=== PATIENT | female | born 2000 | race Caucasian/White ===

== ENCOUNTER 2024-07-19 13:29 | Outpatient (CLI) | payer BC ==
[2024-07-19 14:15] LABS: BASOPHILS % (AUTO) 0.3 % (0-1); EOSINOPHILS # (AUTO) 0.2 X10'3 (0-0.9); EOSINOPHILS % (AUTO) 1.7 % (0-6); HEMATOCRIT 40.8 % (35.0-45.0); LYMPHOCYTES # (AUTO) 2.7 X10'3 (1.1-4.8); LYMPHOCYTES % (AUTO) 31.2 % (21-51); MEAN CORPUSCULAR HEMOGLOBIN 30.9 PG (27.0-31.0); MEAN CORPUSCULAR HGB CONC 34.2 g/dL (33.0-36.5); MEAN CORPUSCULAR VOLUME 90.3 FL (78-98); MEAN PLATELET VOLUME 7.4 FL (7.4-10.4); MONOCYTES # (AUTO) 0.6 X10'3 (0-0.9); MONOCYTES % (AUTO) 6.6 % (2-12); NEUTROPHILS # (AUTO) 5.3 X10'3 (1.8-7.7); NEUTROPHILS % (AUTO) 60.2 % (42-75); PLATELET COUNT 500 X10'3 (140-440); RED BLOOD COUNT 4.52 X10'6 (4.20-5.60); RED CELL DISTRIBUTION WIDTH 13.7 % (11.5-14.5); WHITE BLOOD COUNT 8.8 X10'3 (4.5-11.0)
[2024-07-19 14:49] LABS: ALANINE AMINOTRANSFERASE 14 U/L (12-78); ALBUMIN 3.9 G/DL (3.4-5.0); ALKALINE PHOSPHATASE 91 IU/L (46-116); ANION GAP 9 (8-16); ASPARTATE AMINO TRANSFERASE 9 U/L (10-37); BILIRUBIN,TOTAL 0.4 MG/DL (0.1-1.0); BLOOD UREA NITROGEN 9 MG/DL (7-18); BUN/CREATININE RATIO 12.2 (10.0-20.0); CALCIUM 9.4 MG/DL (8.5-10.1); CHLORIDE 103 MMOL/L (99-107); CHOL/HDL RATIO 3.8 (0.00-4.99); CHOLESTEROL 175 MG/DL (0-200); CREATININE 0.74 MG/DL (0.40-0.90); FREE T4 (FREE THYROXINE) 1.01 NG/DL (0.73-1.40); GLUCOSE 87 MG/DL (70-104); HDL CHOLESTEROL 46 MG/DL (35-60); LDL CHOLESTEROL 107 MG/DL (50-100); POTASSIUM 4.1 MMOL/L (3.5-5.1); SODIUM 141 MMOL/L (135-145); THYROID STIMULATING HORMONE 1.55 ulU/ml (0.34-4.50); TOTAL CARBON DIOXIDE 29.2 MMOL/L (24-32); TOTAL PROTEIN 7.9 G/DL (6.4-8.2); TRIGLYCERIDES 121 MG/DL (20-135); eGFR > 90 ML/MIN
== END 2024-07-19 23:59 | disposition home or self-care (01) ==
LOC: RAD 13:29
PROVIDERS: ATTEND Nurse Practitioner Family
DX: Z13.220 Encounter for screening for lipoid disorders (principal); Z13.1 Encounter for screening for diabetes mellitus; Z13.0 Encounter for screening for diseases of the blood and blood-forming organs and certain disorders involving the immune mechanism; R06.02 Shortness of breath; Z83.49 Family history of other endocrine, nutritional and metabolic diseases; Z76.89 Persons encountering health services in other specified circumstances
CPT/HCPCS: 36415; 80053; 80061; 84439; 84443; 85025

== ENCOUNTER 2025-02-14 15:20 | Outpatient (CLI) | payer BC ==
[2025-02-14 15:48] LABS: MEAN PLATELET VOLUME 7.2 FL (7.4-10.4); RED CELL DISTRIBUTION WIDTH 13.9 % (11.5-14.5)
[2025-02-14 16:03] LABS: CREATININE 0.64 MG/DL (0.40-0.90); TOTAL CARBON DIOXIDE 29.2 MMOL/L (24-32); eGFR > 90 ML/MIN
[2025-02-14 16:23] LABS: HCG SERUM QL NEGATIVE
== END 2025-02-14 23:59 | disposition home or self-care (01) ==
LOC: RAD 15:20
PROVIDERS: ATTEND Nurse Practitioner Family
DX: N91.1 Secondary amenorrhea (principal); R14.0 Abdominal distension (gaseous); N92.6 Irregular menstruation, unspecified; R53.83 Other fatigue
CPT/HCPCS: 36415; 80053; 82670; 82679; 83001; 83002; 84144; 84703; 85025

== ENCOUNTER 2025-02-27 08:21 | Outpatient (CLI) | payer BC ==
--- NOTE | 2025-02-27 09:42 | RADIOLOGY REPORT ---
INDICATION: SECONDARY AMENORRHEA TECHNIQUE: Multiple real-time grayscale transabdominal and TVsonographic images along with color and duplex Doppler of the uterus and ovaries were obtained. COMPARISON: None FINDINGS: The uterus measures 5 x 3 x 4 cm. The endometrial stripe measures 0.6cm. The right ovary measures 4 x 2 x 3 cm. The left ovary measures 3 x 3x 2 cm. Subsequent color and duplex Doppler interrogation of the ovaries demonstrated symmetric vascular flow to both ovaries, though this does not exclude the possibility of torsion due to the dual blood suppl y. IMPRESSION: 1. Grossly unremarkable pelvic ultrasound.
== END 2025-02-27 23:59 | disposition home or self-care (01) ==
LOC: RAD 08:21
PROVIDERS: ATTEND Nurse Practitioner Family
DX: N91.1 Secondary amenorrhea (principal)
CPT/HCPCS: 76856; 93976

== ENCOUNTER 2025-05-27 20:44 | Emergency (ER) | payer BC ==
[~2025-05-27] VITALS: Ht 157.5 cm; Wt 70.3 kg
--- NOTE | 2025-05-27 21:04 | Physician Documentation ---
History of Present Illness ~ Chief Complaint: Mental Health Eval Stated Complaint: Time Seen by MD: 20:56 HPI This is a very pleasant 24-year-old female who presents with a significant other for evaluation of suicidal ideation. She has been experiencing depression, progressively worsening since August this year. Eventually, has been up and decided to come in for help. No somatic complaints. She did have two alcoholic beverages a proximally 2 hours prior to arrival. Medication Reconciliation Allergies: Uncoded Allergies: ANTIBIOTIC (UNSURE NAME) (Allergy, Intermediate, VOMITING, 05/27/25) Miscellaneous Medications Home Med List (No Home Medications), (Reported) Review of Systems ROS 10 point review of systems was performed and unless noted above in HPI is negative for acute process/complaint. Physical Exam Vital Signs: Temperature: 98.2, Source: Temporal, Heart Rate: 84, Respiratory Rate: 18, BP: 116/80, Pulse Oximetry: 100, Weight: 70.300 Oxygen Flow Rate: 0 Physical Exam Physical examination: GENERAL: Awake, alert, oriented, GCS 15, no apparent distress, non-toxic a ppearing, answers questions, follows commands appropriately. Examined in triage, accompanied by significant other HEENT: Atraumatic, normocephalic, pupils equal, extraocular muscles intact Active gross movements, sclerae anicteric, mucus membranes moist, no stridor. NECK: Midline, no JVD CARDIOVASCULAR: Good skin perfusion without evidence of pallor, mottling. PULMONARY: Nonlabored, symmetric chest rise, no audible wheezing, no accessory muscle use, no respiratory distress, speaking in full sentences. GASTROINTESTINAL: Not distended. NEUROLOGIC: Lucid with normal mental status. Normal facial symmetry. Moves all extremities symmetrically and with purpose. No truncal ataxia. Speech is fluid without evidence of dysarthria or aphasia, no focal deficits appreciated. EXTREMITIES: Acute deformities Skin: warm, dry PSYCHIATRIC: Tearful affect, normal insight, normal concentration. Focused exam: [Does not respond to internal stimuli] Progress Results/Orders Results/Orders Orders - KIRILL CARRENO DO Med Rec (05/27/25 21:00) 1799.11 (05/27/25 21:00) Close Observation Level (05/27/25 21:00) Substance Use Navigator (05/27/25 21:00) Ondansetron Disint. Tablet (Zofran Odt T (05/27/25 22:15) Lorazepam Tablet (Ativan Tablet) (05/27/25 22:15) Vital Signs 05/27/25 05/27/25 20:47 21:27 Temp 98.2 Pulse 84 Resp 18 16 B/P (MAP) 116/80 Pulse Ox 100 O2 Flow Rate 0 Laboratory Tests Test 05/27/25 21:17 05/27/25 21:33 White Blood Count 10.0 Red Blood Count 4.82 Hemoglobin 14.7 Hematocrit 42.3 Mean Corpuscular Volume 87.9 Mean Corpuscular Hemoglobin 30.5 Mean Corpuscular Hemoglobin Concent 34.7 Red Cell Distribution Width 14.6 H Platelet Count 470 H Mean Platelet Volume 7.6 Neutrophils (%) (Auto) 63.3 Lymphocytes (%) (Auto) 27.6 Monocytes (%) (Auto) 7.8 Eosinophils (%) (Auto) 0.8 Basophils (%) (Auto) 0.5 Neutrophils # (Auto) 6.3 Lymphocytes # (Auto) 2.7 Monocytes # (Auto) 0.8 Eosinophils # (Auto) 0.1 Basophils # (Auto) 0.1 CBC Comment Sodium Level 141 Potassium Level 3.1 L Chloride Level 103 Carbon Dioxide Level 23.6 L Anion Gap 14 Blood Urea Nitrogen 10 Creatinine 0.77 Estimated GFR/1.73 m2 > 90 BUN/Creatinine Ratio 13.0 Glucose Level 102 Calcium Level 9.1 Albumin 4.4 Thyroid Stimulating Hormone (TSH) 1.64 Chemistry Comments Ethyl Alcohol Level 34 H Urine Specimen Description Cln catch midstream Urine Color Yellow Urine Clarity Clear Urine pH 6.0 Urine Specific [place] <=1.005 Urine Protein Negative Urine Glucose (UA) Negative Urine Ketones Negative Urine Occult Blood Negative Urine Nitrite Negative Urine Bilirubin Negative Urine Urobilinogen 0.2 Urine Leukocyte Esterase Negative Volume Urine Centrifuged 10 ml Urine HCG, Qualitative Negative Urine Comment Urine Opiates Screen Negative Urine Methadone Screen Negative Urine Fentanyl Screen Negative Urine Barbiturates Screen Negative Urine Phencyclidine Screen Negative Urine Amphetamines Screen Negative Urine Benzodiazepines Screen Negative Urine Cocaine Screen Negative Urine Cannabinoids Screen Positive Drug Screen Comment SARS-CoV-2 Antigen (Rapid) Negative Medical Decision Making Additional information obtaine: family Findings Facility Status: ED Holds, [facility] process The plan was discussed with the patient, who demonstrates clear understanding of the plan and is in agreement with the plan unless otherwise noted in the chart. All questions have been answered, all concerns were addressed unless otherwise documented. I was available throughout their ED stay for frequent reassessment and questions. Differential Diagnoses (considered and possible or likely): [Depression, stress, suicidal ideation, unlikely suicidal attempt, alcohol intoxication, alcohol withdrawal, less likely drug toxidrome, less likely thyrotoxicosis] ??Differential Diagnoses (considered and unlikely, not requiring evaluation currently): [No somatic complaints] MDM Data Please see HPI for the following: Independent Historians and external Records Review. Historian: [Patient] Independent Historians: ?[Significant other, record review] Medication Management: [Reviewed medication list] Social History and determinants: [Reviewed] Please see the body of the note for the following: Any independent interpretations of ECG, imaging studies. All vitals signs/haemodynamics, ordered tests were independently reviewed and interpreted by myself. Nursing triage complaint and vitals reviewed, additional nursing notes were reviewed as available and I agree unless otherwise noted or documented in co ntradiction in the chart Vital Signs: Independently reviewed Labs: Independently interpreted Imaging: Independently interpreted Old Medical Records: Independently reviewed, see [facility] for relevant summary and information Pulse Oximetry: [100%] interpreted as [normal on room air] by me [[employer]: [Regular Rate, Regular rhythm, no ectopy, NSR] reviewed and interpreted by me] Additionally notably showing: [Hemodynamics reviewed. Young lady is not febrile, not tachycardic, no evidence of hypotension respiratory distress. CBC normal. Metabolic panel notable for very mild hypokalemia, not clinically significant. Normal renal function, normal thyroid function. Toxicology as expected positive for THC. UA is nondiagnostic for UTI. She is not . COVID is negative.] Tests considered but not ordered include: [Imaging has been considerably does not appear to be necessary] Social Determinants of Health Impact: Patient was evaluated in [facility], or [facility] [place] to healthcare due to below par ratio of patient to medical providers. [] Comorbid Conditions Impacting Present Evaluation and Care/Treatment: [Undiagnosed and untreated depression] Management Discussions with other Healthcare Providers: [Mental health services] Treatment and Disposition Medication Management (Given or considered): [Anxiety nausea palliation]. See EM R for details Consideration for Hospitalization/Escalation/Deescalation of Care: Admission for observation has been considered, [however the patient is able to tolerate p.o., their symptoms are controlled, they are able to rely on oral medications, and their chief complaint/diagnosis can be managed on outpatient basis.] ?ED Course:?[Patient is medically cleared for psychiatric evaluation] ?Shared decision making:?[] Code status:?FULL Please see the full Electronic Medical Record for full details of nursing documentation, medications list, other records of complete past medical history and conditions, vital signs, laboratory studies, and any radiologic study interpretations by radiologists. Portions of this note were completed using [employer] dictation software and as a result there may exist minor errors in spelling. I have reviewed elements of past family and social history and agree as included in note. Differential Dx:Considerations: Include: Other (See body of made note) Departure Disposition: 30 STILL A PATIENT Impression: Primary Impression: Suicidal ideation Additional Impressions: Depression Alcoholic intoxication Hypokalemia Condition: Stable Discharge Instructions: Suicidal Feelings: How to Help Yourself Referrals: NO PRIMARY CARE PROVIDER (PCP) Signature Scribe Signature: No scribe Attestation: Date: May 27, 2025 Time: 21:04 This note accurately reflects clinical decisions, work performed by myself, Kirill Carreno, KIRILL GOODWIN DO May 27, 2025 21:04
[2025-05-27 21:39] LABS: MEAN PLATELET VOLUME 7.6 FL (7.4-10.4); RED CELL DISTRIBUTION WIDTH 14.6 % (11.5-14.5)
[2025-05-27 21:47] LABS: LEUKOCYTE ESTERASE ,URINE NEGATIVE (Neg); NITRITES, URINE NEGATIVE (Neg); OCCULT BLOOD,URINE NEGATIVE (Neg); URINE HCG NEGATIVE (NEG)
[2025-05-27 21:53] LABS: UA COLLECTION TYPE CLN CATCH MIDSTREAM
[2025-05-27] MEDS ORDERED: NO HOME MEDS (21:53)
[2025-05-27 21:56] LABS: URINE AMPHETAMINE SCREEN NEGATIVE (Neg); URINE BARBITUATE SCREEN NEGATIVE (Neg); URINE BENZODIAZEPINES SCREEN NEGATIVE (Neg); URINE CANNABINOID SCREEN POSITIVE (Neg); URINE COCAINE SCREEN NEGATIVE (Neg); URINE METHADONE SCREEN NEGATIVE (Neg); URINE OPIATE SCREEN NEGATIVE (Neg); URINE PHENCYCLIDINE SCREEN NEGATIVE (Neg)
[2025-05-27 22:05] LABS: CREATININE 0.77 MG/DL (0.40-0.90); ETHANOL 34 MG/DL (<10); TOTAL CARBON DIOXIDE 23.6 MMOL/L (24-32); eCRCL 90 ML/MIN; eGFR > 90 ML/MIN
[2025-05-27] MEDS: ondansetron 4mg rapidly disintigrating tab PO ONE (22:42)
[2025-05-28 05:43] VITALS: TEMP 98.6
[2025-05-28] MEDS: potassium Cl 20 mEq SR tablet PO ONE (07:06)
[2025-05-28 11:46] VITALS: BP 125/79; PULSE 88; RESP 14; O2SAT 99
== END 2025-05-28 11:45 | disposition home or self-care (01) ==
LOC: ER 20:44
DX: R45.851 Suicidal ideations (principal); F32.A Depression, unspecified; E87.6 Hypokalemia; F10.129 Alcohol abuse with intoxication, unspecified; Z20.822 Contact with and (suspected) exposure to COVID-19; Y90.9 Presence of alcohol in blood, level not specified
CPT/HCPCS: 36415; 80048; 80305; 80320; 81003; 81025; 83735; 84443; 85025; 87811; 99284